=== PATIENT | female | born 1985 | race Caucasian/White ===

== ENCOUNTER 2016-06-05 04:45 | Emergency (ER) | payer OTHER ==
[~2016-06-05] VITALS: Ht 157.5 cm; Wt 98.6 kg
[~2016-06-05 04:45] MED LIST: ACIPHEX20 MG PO; ADVIL,NUPRIN,M200 MG PO; AMITRIPTYLINE H10 MG PO; AMITRIPTYLINE H25 MG PO; AMOX TR-K CLV1 EAC4 PO; ATARAX10 MG PO; BACTROBAN OINTM22 GM; CLARITIN10 M4 PO; CLONAZEPAM1 MG PO; CLOPIDOGREL75 MG PO; CYMBALTA20 MG PO; DILAUDID2 MG PO; DILAUDID4 MG PO; DUAVEE 0.45-201 EACH PO; Dilaudid PO; EFFEXOR PO; EFFEXOR XR150 MG PO; EFFEXOR XR75 MG PO; EFFEXOR37.5 MG PO; ESTRACE1 MG PO; FIORICET WI1 CAPSULE PO; FLUOXETINE HCL20 M1 PO; GABAPENTIN300 MG PO; HYDROMORPHONE HC2 MG PO; IBUPROFEN800 MG PO; JOLIVETTE0.35 MG PO; KEFLEX500 MG PO; LIDODERM 5% P1 PATCH TD; MEDROL DOSEPAK4 MG PO; MOBIC7.5 MG PO; MORPHINE SULFAT15 M1 PO; MOTRIN600 MG PO; NAPROSYN500 MG PO; NAPROXEN500 MG PO; NEXIUM20 MG PO; NEXIUM40 MG PO; NOHOMEMEDS; NUCYNTA75 MG PO; OMEPRAZOLE20 MG PO; OXYCODONE-ACET1 EACH PO; PEPTO BISMOL262 MG PO; PERCOCET 10/1 TABLET PO; PERCOCET 5/31 TABLET PO; PHENTERMINE H37.5 MG PO; PLAVIX75 MG PO; PRILOSEC20 MG PO; PROAIR HFA8.5 GM IH; PROMETHAZINE HC25 M1 PO; SKELAXIN800 MG PO; TORADOL10 MG PO; TRAMADOL HCL50 MG PO; TYLENOL EXTRA500 MG PO; ULTRAM50 MG PO; URIBEL CAPSULE1 EACH PO; VITAMIN D1000 UNIT PO; ZOFRAN ODT4 MG PO; ZOFRAN4 MG PO; ZOLOFT25 MG PO; [UNRECOGNIZED DRUG - OTHER] IJ
[2016-06-05 06:08] LABS: HEMATOCRIT 32.8 % (36.0-46.0); MCH 27.1 PG (29.0-34.0); MCHC 32.6 G/DL (30.0-36.0); MEAN PLAT.VOLUME 8.9 uM^3 (9.5-12.4); PLATELET COUNT 218 K/uL (156-360); RBC DIS.WIDTH-CV 13.4 % (11.8-14.6); RBC DIS.WIDTH-SD 39.7 % (39-53); RED BLOOD COUNT 3.95 M/uL (3.80-5.20); WHITE BLOOD COUNT 7.7 K/uL (4.1-10.2)
[2016-06-05 06:19] LABS: CHLORIDE 108 mEq/L (99-109); POTASSIUM 3.6 mEq/L (3.7-5.4); SODIUM 140 mEq/L (136-147)
[2016-06-05 06:21] LABS: GLUCOSE 90 mg/dL (70-99)
[2016-06-05 06:22] LABS: ANION GAP 9 MEQ/L (2-14)
[2016-06-05 06:25] LABS: GFR ESTIMATE (CALCULATED) > 59 mL/min/
[2016-06-05 06:26] LABS: UREA NITROGEN (BUN) 6 mg/dL (9-23)
[2016-06-05 06:35] LABS: QUANTITATIVE HCG < 4.0 MIU/ML
[2016-06-05 11:08] VITALS: BP 114/77
== END 2016-06-05 11:15 | disposition home or self-care (01) ==
LOC: EME 04:45
PROVIDERS: Emergency Medicine
DX: R51 Headache (principal); G89.29 Other chronic pain; F11.23 Opioid dependence with withdrawal; T40.4X5A Adverse effect of other synthetic narcotics, initial encounter; J45.909 Unspecified asthma, uncomplicated; K21.9 Gastro-esophageal reflux disease without esophagitis; Z87.442 Personal history of urinary calculi
CPT/HCPCS: 70450; 80048; 81003; 84702; 85027; 99281; 99285; J1100; J1170; J1200; J1885; J7030

== ENCOUNTER 2016-08-14 18:18 | Emergency (ER) | payer OTHER ==
[~2016-08-14] VITALS: Ht 157.5 cm; Wt 98.4 kg
[2016-08-14 19:21] LABS: ADD MIUA? YES; BILIRUBIN NEGATIVE; BLOOD NEGATIVE; COLOR STRAW ((YELLOW)); GLUCOSE (STRIP) NEGATIVE; KETONES NEGATIVE; LEUKOCYTES SMALL; NITRITE NEGATIVE; PROTEIN (STRIP) NEGATIVE; SPECIFIC GRAVITY 1.008 (1.000-1.030); UROBILINOGEN 0.2 MG/DL (0.2-1.0)
[2016-08-14 19:31] LABS: BACTERIA RARE /HPF; EPITHELIAL CELLS RARE /HPF; MUCUS NONE SEEN /LPF; RED BLOOD CELLS 0-5 /HPF (0-5); UCUL ADDED? NO; WHITE BLOOD CELLS 0-5 /HPF (0-5)
[2016-08-14 20:42] VITALS: BP 118/77
== END 2016-08-14 20:59 | disposition home or self-care (01) ==
LOC: EME 18:18
PROVIDERS: Physician Assistant
DX: M54.5 Low back pain (principal); G89.29 Other chronic pain; Z87.442 Personal history of urinary calculi
CPT/HCPCS: 71020; 81003; 93005; 99281; 99284; J2270; Q0169

== ENCOUNTER 2016-09-09 20:55 | Emergency (ER) | payer OTHER ==
[~2016-09-09] VITALS: Ht 157.5 cm; Wt 96.3 kg
[2016-09-09 21:38] LABS: HEMATOCRIT 34.9 % (36.0-46.0); MCH 26.9 PG (29.0-34.0); MCHC 31.8 G/DL (30.0-36.0); MCV 84.5 FL (83-99); MEAN PLAT.VOLUME 9.1 uM^3 (9.5-12.4); PLATELET COUNT 211 K/uL (156-360); RBC DIS.WIDTH-CV 13.8 % (11.8-14.6); RBC DIS.WIDTH-SD 42.2 % (39-53); RED BLOOD COUNT 4.13 M/uL (3.80-5.20); WHITE BLOOD COUNT 6.1 K/uL (4.1-10.2)
[2016-09-09 21:52] LABS: CHLORIDE 108 mEq/L (99-109); POTASSIUM 3.9 mEq/L (3.7-5.4); SODIUM 143 mEq/L (136-147)
[2016-09-09 21:54] LABS: GLUCOSE 90 mg/dL (70-99)
[2016-09-09 21:55] LABS: ANION GAP 12 MEQ/L (2-14)
[2016-09-09 21:56] LABS: TOTAL BILIRUBIN 0.2 mg/dL (0.0-1.0)
[2016-09-09 21:57] LABS: ALKALINE PHOSPHATASE 71 IU/L (3-129)
[2016-09-09 21:58] LABS: GFR ESTIMATE (CALCULATED) > 59 mL/min/
[2016-09-09 21:59] LABS: UREA NITROGEN (BUN) 13 mg/dL (9-23)
[2016-09-09 22:03] LABS: TROP-I INTERPRETATION NEGATIVE; TROPONIN-I < 0.01 ng/mL (0.0-0.30)
[2016-09-09 22:06] LABS: QUANTITATIVE HCG < 4.0 MIU/ML
[2016-09-10 00:06] LABS: TROP-I INTERPRETATION NEGATIVE; TROPONIN-I < 0.01 ng/mL (0.0-0.30)
[2016-09-10 00:25] VITALS: BP 111/74
== END 2016-09-10 00:27 | disposition home or self-care (01) ==
LOC: EME → EDBD 20:55 → EME 09-10 00:27
PROVIDERS: Emergency Medicine
DX: R07.9 Chest pain, unspecified (principal); G89.29 Other chronic pain; R10.30 Lower abdominal pain, unspecified; Z87.442 Personal history of urinary calculi
CPT/HCPCS: 71010; 80053; 84484; 84702; 85027; 93005; 93970; 93976; 99281; 99284; J1200; J2270; J2405; J3010; J7030; Q0169

== ENCOUNTER 2016-10-08 00:45 | Emergency (ER) | payer OTHER ==
[~2016-10-08] VITALS: Ht 157.5 cm; Wt 98.0 kg
[2016-10-08 02:03] LABS: EOSINOPHIL COUNT 0.1 K/uL (0-0.3); HEMATOCRIT 34.3 % (36.0-46.0); IMMATURE GRANULOCYTE (%) 0.4 % (0.0-0.7); INSTRUMENT ABS NEUTROPHIL CT 3.6 K/uL; LYMPHOCYTE COUNT 2.6 K/uL (1.0-2.8); MCH 26.9 PG (29.0-34.0); MCHC 32.4 G/DL (30.0-36.0); MCV 83.3 FL (83-99); MEAN PLAT.VOLUME 8.9 uM^3 (9.5-12.4); MONOCYTE (%) 7.9 % (3-12); MONOCYTE COUNT 0.6 K/uL (0-0.8); NEUTROPHIL (%) 51.6 % (45-76); NEUTROPHIL COUNT 3.6 K/uL (1.8-6.4); PLATELET COUNT 214 K/uL (156-360); RBC DIS.WIDTH-CV 13.5 % (11.8-14.6); RBC DIS.WIDTH-SD 40.1 % (39-53); RED BLOOD COUNT 4.12 M/uL (3.80-5.20)
[2016-10-08 02:13] LABS: CHLORIDE 106 mEq/L (99-109); POTASSIUM 3.8 mEq/L (3.7-5.4); SODIUM 142 mEq/L (136-147)
[2016-10-08 02:15] LABS: GLUCOSE 99 mg/dL (70-99)
[2016-10-08 02:16] LABS: ANION GAP 9 MEQ/L (2-14)
[2016-10-08 02:17] LABS: TOTAL BILIRUBIN 0.5 mg/dL (0.0-1.0)
[2016-10-08 02:18] LABS: ALKALINE PHOSPHATASE 83 IU/L (3-129)
[2016-10-08 02:19] LABS: GFR ESTIMATE (CALCULATED) > 59 mL/min/
[2016-10-08 02:20] LABS: UREA NITROGEN (BUN) 11 mg/dL (9-23)
[2016-10-08 02:22] LABS: LIPASE 24 U/L (1.0-51.0)
[2016-10-08 02:29] LABS: ADD MIUA? NO; BILIRUBIN NEGATIVE; BLOOD NEGATIVE; COLOR STRAW ((YELLOW)); GLUCOSE (STRIP) NEGATIVE; KETONES NEGATIVE; LEUKOCYTES NEGATIVE; NITRITE NEGATIVE; PROTEIN (STRIP) NEGATIVE; SPECIFIC GRAVITY 1.003 (1.000-1.030); UCUL ADDED? NO
[2016-10-08 03:46] VITALS: BP 116/64
== END 2016-10-08 03:50 | disposition home or self-care (01) ==
LOC: EME 00:45
PROVIDERS: Emergency Medicine
DX: R11.2 Nausea with vomiting, unspecified (principal); R10.9 Unspecified abdominal pain; R79.89 Other specified abnormal findings of blood chemistry; R53.1 Weakness; G89.29 Other chronic pain; R10.30 Lower abdominal pain, unspecified; R10.2 Pelvic and perineal pain; Z87.442 Personal history of urinary calculi; Z90.710 Acquired absence of both cervix and uterus; Z90.49 Acquired absence of other specified parts of digestive tract
CPT/HCPCS: 76705; 80053; 81003; 83690; 85025; 99281; 99284; J2405; J7030

== ENCOUNTER 2016-10-13 06:09 | Emergency (ER) | payer OTHER ==
[~2016-10-13] VITALS: Ht 157.5 cm; Wt 98.8 kg
[2016-10-13 06:12] VITALS: BP 124/83
== END 2016-10-13 06:55 | disposition home or self-care (01) ==
LOC: EME 06:09
DX: Z48.00 Encounter for change or removal of nonsurgical wound dressing (principal); Z96.89 Presence of other specified functional implants; Z88.8 Allergy status to other drugs, medicaments and biological substances; Z91.048 Other nonmedicinal substance allergy status
CPT/HCPCS: 99281; 99284

== ENCOUNTER 2016-12-13 01:42 | Emergency (ER) | payer OTHER ==
[~2016-12-13] VITALS: Ht 157.5 cm; Wt 94.4 kg
[2016-12-13 02:31] LABS: ADD MIUA? NO; BILIRUBIN NEGATIVE; BLOOD NEGATIVE; COLOR STRAW ((YELLOW)); GLUCOSE (STRIP) NEGATIVE; KETONES NEGATIVE; LEUKOCYTES NEGATIVE; NITRITE NEGATIVE; PROTEIN (STRIP) NEGATIVE; SPECIFIC GRAVITY 1.005 (1.000-1.030); UCUL ADDED? NO; UROBILINOGEN 0.2 MG/DL (0.2-1.0)
[2016-12-13 02:37] LABS: EOSINOPHIL (%) 1.1 % (0-5); EOSINOPHIL COUNT 0.1 K/uL (0-0.3); IMMATURE GRANULOCYTE (%) 0.3 % (0.0-0.7); INSTRUMENT ABS NEUTROPHIL CT 3.9 K/uL; LYMPHOCYTE COUNT 2.5 K/uL (1.0-2.8); MCH 26.5 PG (29.0-34.0); MCHC 32.1 G/DL (30.0-36.0); MCV 82.5 FL (83-99); MEAN PLAT.VOLUME 9.8 uM^3 (9.5-12.4); MONOCYTE (%) 6.3 % (3-12); MONOCYTE COUNT 0.4 K/uL (0-0.8); NEUTROPHIL (%) 55.6 % (45-76); NEUTROPHIL COUNT 3.9 K/uL (1.8-6.4); PLATELET COUNT 220 K/uL (156-360); RBC DIS.WIDTH-CV 13.5 % (11.8-14.6); RBC DIS.WIDTH-SD 40.3 % (39-53); RED BLOOD COUNT 4.12 M/uL (3.80-5.20)
[2016-12-13 02:48] LABS: CHLORIDE 109 mEq/L (99-109); POTASSIUM 3.9 mEq/L (3.7-5.4); SODIUM 140 mEq/L (136-147)
[2016-12-13 02:50] LABS: GLUCOSE 88 mg/dL (70-99)
[2016-12-13 02:51] LABS: ANION GAP 10 MEQ/L (2-14)
[2016-12-13 02:54] LABS: GFR ESTIMATE (CALCULATED) > 59 mL/min/
[2016-12-13 02:55] LABS: UREA NITROGEN (BUN) 18 mg/dL (9-23)
[2016-12-13 03:22] LABS: TROP-I INTERPRETATION NEGATIVE; TROPONIN-I < 0.01 ng/mL (0.0-0.30)
[2016-12-13 04:16] VITALS: BP 124/61
== END 2016-12-13 04:21 | disposition home or self-care (01) ==
LOC: EME → EDBD 01:42 → EME 04:21
PROVIDERS: Emergency Medicine
DX: G89.29 Other chronic pain (principal); R10.2 Pelvic and perineal pain; N94.89 Other specified conditions associated with female genital organs and menstrual cycle; F41.9 Anxiety disorder, unspecified; K21.9 Gastro-esophageal reflux disease without esophagitis; Z87.442 Personal history of urinary calculi; Z88.8 Allergy status to other drugs, medicaments and biological substances
CPT/HCPCS: 80048; 81003; 84484; 85025; 93005; 99281; 99284; J2270; J3010; Q0169

== ENCOUNTER 2017-01-06 21:23 | Emergency (ER) | payer OTHER ==
[~2017-01-06] VITALS: Ht 157.5 cm; Wt 99.2 kg
[2017-01-06 21:49] VITALS: BP 116/87
[2017-01-07] MEDS ORDERED: OXYCODONE HCL10 MG PO (15:56)
[2017-01-07] MEDS ORDERED: PROMETHAZINE HC25 M1 PO (15:58)
== END 2017-01-06 23:30 | disposition left against medical advice (07) ==
LOC: EME 21:23
DX: R50.9 Fever, unspecified (principal); Z53.21 Procedure and treatment not carried out due to patient leaving prior to being seen by health care provider
CPT/HCPCS: 80053; 81003; 84702; 85027

== ENCOUNTER 2017-01-07 15:03 | Emergency (ER) | payer OTHER ==
[~2017-01-07] VITALS: Ht 157.5 cm; Wt 95.4 kg
[2017-01-07] MEDS ORDERED: OXYCODONE HCL10 MG PO (15:56)
[2017-01-07] MEDS ORDERED: PROMETHAZINE HC25 M1 PO (15:58)
[2017-01-07 16:39] LABS: EOSINOPHIL (%) 2.4 % (0-5); EOSINOPHIL COUNT 0.2 K/uL (0-0.3); HEMATOCRIT 32.5 % (36.0-46.0); IMMATURE GRANULOCYTE (%) 0.5 % (0.0-0.7); LYMPHOCYTE COUNT 1.8 K/uL (1.0-2.8); MCH 26.5 PG (29.0-34.0); MCV 82.9 FL (83-99); MEAN PLAT.VOLUME 9.2 uM^3 (9.5-12.4); MONOCYTE (%) 5.4 % (3-12); MONOCYTE COUNT 0.3 K/uL (0-0.8); NEUTROPHIL (%) 63.2 % (45-76); PLATELET COUNT 221 K/uL (156-360); RBC DIS.WIDTH-CV 13.6 % (11.8-14.6); RED BLOOD COUNT 3.92 M/uL (3.80-5.20); WHITE BLOOD COUNT 6.3 K/uL (4.1-10.2)
[2017-01-07 16:50] LABS: CHLORIDE 107 mEq/L (99-109); POTASSIUM 3.9 mEq/L (3.7-5.4); SODIUM 140 mEq/L (136-147)
[2017-01-07 16:51] LABS: GLUCOSE 100 mg/dL (70-99)
[2017-01-07 16:53] LABS: ANION GAP 8 MEQ/L (2-14)
[2017-01-07 16:55] LABS: GFR ESTIMATE (CALCULATED) > 59 mL/min/
[2017-01-07 16:56] LABS: UREA NITROGEN (BUN) 10 mg/dL (9-23)
[2017-01-07 17:51] LABS: ADD MIUA? NO; BILIRUBIN NEGATIVE; BLOOD NEGATIVE; COLOR YELLOW ((YELLOW)); GLUCOSE (STRIP) NEGATIVE; KETONES NEGATIVE; LEUKOCYTES NEGATIVE; NITRITE NEGATIVE; PROTEIN (STRIP) NEGATIVE; UCUL ADDED? NO; UROBILINOGEN 0.2 MG/DL (0.2-1.0)
[2017-01-07 20:04] VITALS: BP 119/73
== END 2017-01-07 20:05 | disposition home or self-care (01) ==
LOC: EME 15:03
DX: G89.29 Other chronic pain (principal); R10.2 Pelvic and perineal pain; R50.9 Fever, unspecified; R51 Headache; Z98.890 Other specified postprocedural states; Z90.49 Acquired absence of other specified parts of digestive tract; Z87.442 Personal history of urinary calculi; Z79.891 Long term (current) use of opiate analgesic
CPT/HCPCS: 72193; 74177; 80048; 81003; 83605; 85025; 99281; 99284; J1885; J2270; J2405; J7030

== ENCOUNTER 2017-03-29 12:06 | Emergency (ER) | payer OTHER ==
[~2017-03-29] VITALS: Ht 157.5 cm; Wt 96.8 kg
[~2017-03-29 12:06] MED LIST changes: +OXYCODONE HCL10 MG PO
[2017-03-29] MEDS ORDERED: FIORICET 50-301 EAC1 PO (14:31)
[2017-03-29] MEDS ORDERED: SKELAXIN800 MG PO (14:31)
[2017-03-29 14:47] VITALS: BP 125/98
== END 2017-03-29 14:48 | disposition home or self-care (01) ==
LOC: EME 12:06
DX: S16.1XXA Strain of muscle, fascia and tendon at neck level, initial encounter (principal); V43.52XA Car driver injured in collision with other type car in traffic accident, initial encounter; Y92.410 Unspecified street and highway as the place of occurrence of the external cause; G44.209 Tension-type headache, unspecified, not intractable; R11.2 Nausea with vomiting, unspecified
CPT/HCPCS: 72040; 99281; 99283

== ENCOUNTER 2017-08-06 15:17 | Emergency (ER) | payer OTHER ==
[~2017-08-06] VITALS: Ht 157.5 cm; Wt 104.4 kg
[~2017-08-06 15:17] MED LIST changes: +FIORICET 50-301 EAC1 PO
[2017-08-06 17:26] VITALS: BP 126/81
== END 2017-08-06 17:27 | disposition home or self-care (01) ==
LOC: EME 15:17
DX: R51 Headache (principal); M79.7 Fibromyalgia; J45.909 Unspecified asthma, uncomplicated; K21.9 Gastro-esophageal reflux disease without esophagitis; F41.9 Anxiety disorder, unspecified; G89.29 Other chronic pain; Z87.442 Personal history of urinary calculi; Z88.8 Allergy status to other drugs, medicaments and biological substances
CPT/HCPCS: 99281; 99284; J1885

== ENCOUNTER 2017-10-20 19:48 | Emergency (ER) | payer OTHER ==
[~2017-10-20] VITALS: Ht 157.5 cm; Wt 105.4 kg
[2017-10-20 20:31] LABS: HEMATOCRIT 33.8 % (36.0-46.0); HEMOGLOBIN 10.9 G/DL (11.9-15.5); MCH 26.3 PG (29.0-34.0); MCHC 32.2 G/DL (30.0-36.0); MCV 81.4 FL (83-99); PLATELET COUNT 252 K/uL (156-360); RBC DIS.WIDTH-CV 13.7 % (11.8-14.6); RBC DIS.WIDTH-SD 40.1 % (39-53); RED BLOOD COUNT 4.15 M/uL (3.80-5.20); WHITE BLOOD COUNT 7.7 K/uL (4.1-10.2)
[2017-10-20 20:44] LABS: ALBUMIN 4.2 g/dL (3.2-4.8); CHLORIDE 109 mEq/L (99-109); POTASSIUM 3.7 mEq/L (3.7-5.4); SODIUM 143 mEq/L (136-147)
[2017-10-20 20:46] LABS: GLUCOSE 133 mg/dL (70-99)
[2017-10-20 20:47] LABS: TOTAL PROTEIN 7.3 g/dL (6.4-8.3)
[2017-10-20 20:48] LABS: TOTAL BILIRUBIN 0.4 mg/dL (0.0-1.0)
[2017-10-20 20:50] LABS: ALKALINE PHOSPHATASE 98 IU/L (3-129); CREATININE 0.9 mg/dL (0.6-1.3); GFR ESTIMATE (CALCULATED) > 59 mL/min/
[2017-10-20 20:51] LABS: UREA NITROGEN (BUN) 12 mg/dL (9-23)
[2017-10-20 20:52] LABS: AST (GOT) 58 IU/L (2-34); TROP-I INTERPRETATION NEGATIVE; TROPONIN-I < 0.01 ng/mL (0.0-0.30)
[2017-10-20 20:53] LABS: ALT (GPT) 79 IU/L (3-49)
[2017-10-20 23:00] LABS: TROP-I INTERPRETATION NEGATIVE; TROPONIN-I < 0.01 ng/mL (0.0-0.30)
[2017-10-20] MEDS ORDERED: LORTAB 5-325 M1 EACH PO (23:23)
[2017-10-20 23:56] VITALS: BP 105/68
== END 2017-10-20 23:58 | disposition home or self-care (01) ==
LOC: EME → EDBD 19:48 → EME 19:48
PROVIDERS: Nurse Practitioner Family
DX: M25.511 Pain in right shoulder (principal); M79.601 Pain in right arm; R07.89 Other chest pain; R01.1 Cardiac murmur, unspecified; Z95.5 Presence of coronary angioplasty implant and graft; F41.9 Anxiety disorder, unspecified; J45.909 Unspecified asthma, uncomplicated; K21.9 Gastro-esophageal reflux disease without esophagitis; G89.29 Other chronic pain; Z86.69 Personal history of other diseases of the nervous system and sense organs; Z88.8 Allergy status to other drugs, medicaments and biological substances
CPT/HCPCS: 71046; 73030; 80053; 84484; 85027; 93005; 99281; 99285; J2270; J2405; J3010